=== PATIENT | female | born 1965 | race American Indian/Alaskan Native ===

== ENCOUNTER 2020-07-04 03:22 | Emergency (ER) | payer MEDICAID ==
--- NOTE | 2020-07-04 05:29 | XRay Report ---
CHEST 2 VIEWS INDICATION / CLINICAL INFORMATION: Productive cough for one week. COMPARISON: 09/15/2012 FINDINGS: SUPPORT DEVICES: None. HEART / MEDIASTINUM: No significant abnormality. LUNGS / PLEURA: There is bullous disease in the upper lung zones right greater than left. There is hy perinflation the lungs .No pneumothorax. ADDITIONAL FINDINGS: No significant additional findings. IMPRESSION: 1. There are chronic changes of COPD. No acute disease is seen Signer Name: Omero Traylor MD Signed: 07/04/2020 5:24 AM Workstation Name: [id number]
[2020-07-04] MEDS ORDERED: ALBUTEROL 2.5 MG/3 ML NEBU IH ONE (07:51)
[2020-07-04] MEDS ORDERED: IPRATROPIUM 0.02% NEBU 2.5 ML IH ONE (07:51)
[2020-07-04] MEDS ORDERED: dexAMETHasone 20 MG/5 ML VIAL IM ONE (07:51)
--- NOTE | 2020-07-04 07:55 | Emergency Department Report ---
- General Chief Complaint: Upper Respiratory Infection Stated Complaint: COUGH/SOB Time Seen by Provider: 07/04/20 07:46 Source: patient Mode of arrival: Ambulatory Limitations: No Limitations - History of Present Illness Initial Comments: Patient is a 55-year-old female presents emergency room with complaints of a productive cough that began a week ago. She states that she has yellow sputum production. She states that she has associated shortness of breath and has chest discomfort after frequent coughing. She denies any fever, nausea, vomiting, diarrhea, abdominal pain. She has a past medical history of HIV and states that she is on her antivirals and reports that she is undetectable. She is a current every day smoker 1 pack/day. She has an allergy to penicillin. - Related Data Previous Rx's Medication Instructions Recorded Last Taken Type Albuterol Sulfate [Proventil Hfa] 6.7 gm IH TID PRN #1 hfa.aer.ad 07/04/20 Unknown Rx Azithromycin [Zithromax TAB] 250 mg PO QDAY 5 Days #6 tablet 07/04/20 Unknown Rx Prednisone [predniSONE 10 mg 10 mg PO .TAPER #1 tab.ds.pk 07/04/20 Unknown Rx (6-Day Pack, 21 Tabs)] Allergies Allergy/AdvReac Type Severity Reaction Status Date / Time ampicillin Allergy Hives Verified 07/04/20 04:20 Penicillins Allergy Itching Verified 07/04/20 04:19 ED Review of Systems ROS: Stated complaint: COUGH/SOB Other details as noted in HPI Comment: All other systems reviewed and negative ED Past Medical Hx - Past Medical History Previous Medical History?: Yes Hx HIV: Yes - Surgical History Past Surgical History?: No - Social History Smoking Status: Current Every Day Smoker Substance Use Type: None - Medications Home Medications: Home Medications Medication Instructions Recorded Confirmed Last Taken Type Albuterol Sulfate [Proventil Hfa] 6.7 gm IH TID PRN #1 hfa.aer.ad 07/04/20 Unknown Rx Azithromycin [Zithromax TAB] 250 mg PO QDAY 5 Days #6 tablet 07/04/20 Unknown Rx Prednisone [predniSONE 10 mg 10 mg PO .TAPER #1 tab.ds.pk 07/04/20 Unknown Rx (6-Day Pack, 21 Tabs)] ED Physical Exam - General Limitations: No Limitations General appearance: alert, in no apparent distress - Head Head exam: Present: atraumatic, normocephalic - Eye Eye exam: Present: normal appearance - ENT ENT exam: Present: mucous membranes moist - Respiratory Respiratory exam: Present: wheezes (throughout), rhonchi (throughout), prolonged expiratory. Absent: respiratory distress, rales, stridor, chest wall tenderness, accessory muscle use - Cardiovascular Cardiovascular Exam: Present: regular rate, normal rhythm, normal heart sounds. Absent: systolic murmur, diastolic murmur, rubs, gallop - Neurological Exam Neurological exam: Present: alert, oriented X3 - Psychiatric Psychiatric exam: Present: normal affect, normal mood - Skin Skin exam: Present: warm, dry, intact ED Course Vital Signs 07/04/20 07/04/20 04:25 10:00 Temperature 98.6 F Pulse Rate 88 73 Respiratory 16 18 Rate Blood Pressure 134/87 127/97 [Left] O2 Sat by Pulse 98 100 Oximetry ED Medical Decision Making - Lab Data Vital Signs 07/04/20 07/04/20 04:25 10:00 Temperature 98.6 F Pulse Rate 88 73 Respiratory 16 18 Rate Blood Pressure 134/87 127/97 [Left] O2 Sat by Pulse 98 100 Oximetry - Radiology Data Radiology results: report reviewed CHEST 2 VIEWS INDICATION / CLINICAL INFORMATION: Productive cough for one week. COMPARISON: 09/15/2012 FINDINGS: SUPPORT DEVICES: None. HEART / MEDIASTINUM: No significant abnormality. LUNGS / PLEURA: There is bullous disease in the upper lung zones right greater than left. There is hyperinflation the lungs .No pneumothorax. ADDITIONAL FINDINGS: No significant additional findings. IMPRESSION: 1. There are chronic changes of COPD. No acute disease is seen Signer Name: Omero Traylor MD Signed: 07/04/2020 5:24 AM Workstation Name: [id number] Transcribed By: SS Dictated By: Omero Traylor MD Electronically Authenticated By: Omero Traylor MD Signed Date/Time: 07/04/20523 DD/ 1 TD/TT: - Medical Decision Making Patient is a 55-year-old female presents emergency room with complaints of a productive cough that began a week ago. She states that she has yellow sputum production. She states that she has associated shortness of breath and has chest discomfort after frequent coughing. She denies any fever, nausea, vomiting, diarrhea, abdominal pain. She has a past medical history of HIV and states that she is on her antivirals and reports that she is undetectable. She is a current every day smoker 1 pack/day. She has an allergy to penicillin. Vitals are normal. On exam patient has wheezing and rhonchi throughout, no respiratory distress, no accessory muscle use, no stridor. CXR: 1. There are chronic changes of COPD. No acute disease is seen. Patient appears to be having a acute exacerbation of her COPD. Given that this has been occurring for a week and she has had a change in her sputum production, patient will be covered for acute bronchitis with antibiotics. Patient given continuous neb treatment and steroids IM while in the emergency department and wheezing has improved. Patient was ambulated in the emergency department by supervisor [employer] and maintained oxygen sats of 95% or greater on room air. Patient given prescription for prednisone, azithromycin, albuterol inhaler. advised pt please take medication as prescribed. Increase your water intake. Follow-up with a primary care doctor. Return to the emergency room for any new or worsening symptoms. Please stop smoking. - Differential Diagnosis COPD, URI, PNA, acute bronchitis, reactive airway, viral syndrome Critical care attestation.: If time is entered above; I have spent that time in minutes in the direct care of this critically ill patient, excluding procedure time. ED Disposition Clinical Impression: Acute exacerbation of chronic obstructive pulmonary disease (COPD), Tobacco abuse Disposition: DC- TO HOME OR SELFCARE Is pt being admited?: No Does the pt Need Aspirin: No Condition: Stable Instructions: How to Stop Smoking (ED), Acute Bronchitis (ED), Chronic Obstruc tive Pulmonary Disease (ED) Additional Instructions: Please take medication as prescribed. Increase your water intake. Follow-up with a primary care doctor. Return to the emergency room for any new or worsening symptoms. Please stop smoking. Prescriptions: Prednisone [predniSONE 10 mg (6-Day Pack, 21 Tabs)] 10 mg PO .TAPER #1 tab.ds.pk Albuterol Sulfate [Proventil Hfa] 6.7 gm IH TID PRN #1 hfa.aer.ad PRN Reason: Shortness Of Breath Azithromycin [Zithromax TAB] 250 mg PO QDAY 5 Days #6 tablet Referrals: PRIMARY CARE, [Primary Care Provider] - 2-3 Days CARBUCCIA,BINU, MD [Staff Physician] - 2-3 Days [facility] [Provider Group] - 2-3 Days Time of Disposition: 10:18 Print Language: ARABIC
[2020-07-04 10:01] VITALS: BP 127/97
== END 2020-07-04 10:53 | disposition home or self-care (01) ==
LOC: ED 03:22
DX: J44.1 Chronic obstructive pulmonary disease with (acute) exacerbation (principal); Z21 Asymptomatic human immunodeficiency virus [HIV] infection status; Z88.0 Allergy status to penicillin; Z79.899 Other long term (current) drug therapy; Z72.0 Tobacco use
CPT/HCPCS: 71046; 96372; 99283; J1100